=== PATIENT | female | born 1995 ===

== ENCOUNTER 2017-05-07 15:25 | Emergency (ER) | payer BC ==
[2017-05-07 15:55] VITALS: BP 108/69
--- NOTE | 2017-05-07 16:47 | UC ---
UC General HPI - HPI Summary HPI Summary: pt is on day 3 of sudden headache, head congestion, sore throat, cough, f/c and temp of 101. went to [facility], neg strep. told sinus infection but they could not prescribe antibiotics. + body aches. no sob, v/d. - History of Current Complaint Hx Obtained From: Patient Hx Last Menstrual Period: 04/30/17 Onset/Duration: Sudden Onset Timing: Constant Pain Intensity: 7 Associated Signs & Symptoms: Positive: Cough, Fever, Headache. Negative: Diarrhea, Dysuria, Nausea, SOB, Vomiting, Wheezing <Brenna Leslie - Last Filed: 05/07/17 17:17> <Jessica Elizabeth - Last Filed: 05/07/17 17:28> - History of Current Complaint Chief Complaint: UCRespiratory Stated Complaint: SINUS Time Seen by Provider: 05/07/17 16:33 - Allergy/Home Medications Allergies/Adverse Reactions: Allergies Allergy/AdvReac Type Severity Reaction Status Date / Time seasonal Allergy Unknown congestion, Uncoded 05/07/17 15:45 sneezing Home Medications: Home Medications Oral Contraceptive 1 tab PO DAILY 05/07/17 [History] PMH/Surg Hx/FS Hx/Imm Hx Previously Healthy: Yes - Surgical History Surgical History: Yes Surgery Procedure, Year, and Place: COLONOSCOPY. T&A - Social History Occupation: Student Lives: Dormitory/Roommates Alcohol Use: Occasionally Substance Use Type: None Smoking Status (MU): Never Smoked Tobacco - Immunization History Vaccination Up to Date: Yes <Brenna Leslie - Last Filed: 05/07/17 17:17> Review of Systems Constitutional: Fever, Chills ENT: Sore Throat, Nasal Discharge, Sinus Congestion Respiratory: Cough Musculoskeletal: Myalgia Neurological: Headache Is Patient Immunocompromised?: No All Other Systems Reviewed And Are Negative: Yes <Brenna Leslie - Last Filed: 05/07/17 17:17> Physical Exam Triage Information Reviewed: Yes Appearance: Well-Appearing Vital Signs: Initial Vital Signs Temp 98.9 F 05/07/17 15:46 Pulse 86 05/07/17 15:46 Resp 18 05/07/17 15:46 BP 108/69 05/07/17 15:46 Pulse Ox 99 05/07/17 15:46 Vital Signs Reviewed: Yes Eyes: Positive: Conjunctiva Clear ENT: Positive: Pharynx normal, Nasal congestion, Nasal drainage - clear, TMs normal, Uvula midline. Negative: Tonsillar swelling, Tonsillar exudate, Trismus , Muffled voice, Sinus tenderness Neck: Positive: Supple, Nontender, No Lymphadenopathy Respiratory: Positive: Lungs clear, Normal breath sounds, No respiratory distress Cardiovascular: Positive: RRR, No Murmur Abdomen Description: Positive: Nontender, No Organomegaly, Soft Bowel Sounds: Positive: Present Musculoskeletal: Positive: ROM Intact Neurological: Positive: Alert Psychological: Positive: Age Appropriate Behavior Skin Exam: Normal <Brenna Leslie - Last Filed: 05/07/17 17:17> Vital Signs: Initial Vital Signs Temp 98.9 F 05/07/17 15:46 Pulse 86 05/07/17 15:46 Resp 18 05/07/17 15:46 BP 108/69 05/07/17 15:46 Pulse Ox 99 05/07/17 15:46 <Jessica Elizabeth - Last Filed: 05/07/17 17:28> Diagnostics - Laboratory Diagnostic Studies Completed/Ordered: rapid flu=neg. strep by wilmar mckeon was negative [employer]rim[employer] boat [employer] <Brenna Leslie - Last Filed: 05/07/17 17:17> Course/Dx - Course Course Of Treatment: non toxic, abrupt in onset. nothing to suggest bacterial infection. c/w STONEY. day 3 of s/s's. tx supportive - Differential Dx - Multi-Symptom Provider Diagnoses: influenza like illness. <Brenna Leslie - Last Filed: 05/07/17 17:17> Discharge - Sign-Out/Discharge Documenting (check all that apply): Discharge - Billing Disposition and Condition Condition: STABLE Disposition: HOME <Brenna Leslie - Last Filed: 05/07/17 17:17> - Billing Disposition and Condition Condition: STABLE Disposition: HOME <Jessica lEizabeth - Last Filed: 05/07/17 17:28> - Discharge Plan Condition: Stable Disposition: HOME Patient Education Materials: Influenza (ED) Forms: *School Release Referrals: Non Staff,Doctor [Primary Care Provider] - Additional Instructions: FOLLOW UP [facility] IN 5 DAYS FOR A RECHECK OR SOONER IF WORSE. Attestation Statement User Type: Provider - I was available for consult. This patient was seen by the advanced practice provider. The patient was not presented to, seen by, or examined by me.-Mireya <Jessica Elizabeth - Last Filed: 05/07/17 17:28>
== END 2017-05-07 17:21 | disposition home or self-care (01) ==
LOC: UCCORT 15:25
DX: J11.1 Influenza due to unidentified influenza virus with other respiratory manifestations (principal)
CPT/HCPCS: 87502; 99201; G0463

== ENCOUNTER 2018-10-21 14:36 | Emergency (ER) | payer BC, OTHER ==
[2018-10-21 15:01] VITALS: BP 113/65
--- NOTE | 2018-10-21 15:08 | UC ---
General HPI - HPI Summary HPI Summary: pt was accidentally hit in the bridge of her nose by an elbow last pm. she is c/o pain, sinus pain and nose being curved. she did hear it crack. no bloody nose, blurry/double vision or malocclusion. - History of Current Complaint Chief Complaint: UCTrauma Stated Complaint: NOSE INJURY(ELBOWED) Time Seen by Provider: 10/21/18 14:59 Hx Obtained From: Patient Hx Last Menstrual Period: week ago Onset/Duration: Sudden Onset Timing: Constant Pain Intensity: 6 Associated Signs & Symptoms: Negative: Headache - Allergy/Home Medications Allergies/Adverse Reactions: Allergies Allergy/AdvReac Type Severity Reaction Status Date / Time seasonal Allergy Unknown congestion, Uncoded 10/21/18 15:01 sneezing PMH/Surg Hx/FS Hx/Imm Hx Previously Healthy: Yes - Surgical History Surgical History: Yes Surgery Procedure, Year, and Place: COLONOSCOPY. T&A - Family History Known Family History: Positive: Non-Contributory - Social History Occupation: Student Alcohol Use: Occasionally Substance Use Type: None Smoking Status (MU): Never Smoked Tobacco - Immunization History Vaccination Up to Date: Yes Review of Systems All Other Systems Reviewed And Are Negative: No Constitutional: Negative: Fever Eyes: Negative: Blurred Vision, Diplopia ENT: Positive: Sinus Pain/Tenderness. Negative: Nasal Discharge Neurological: Negative: Headache Physical Exam Triage Information Reviewed: Yes Appearance: Well-Appearing Vital Signs: Initial Vital Signs Temp 98.8 F 10/21/18 14:56 Pulse 58 10/21/18 14:56 Resp 16 10/21/18 14:56 BP 113/65 10/21/18 14:56 Pulse Ox 100 10/21/18 14:56 Vital Signs Reviewed: Yes Eyes: Positive: Conjunctiva Clear, Other: - PERRL. EOMI. No double or blurry vision. ENT: Positive: Pharynx normal, TMs normal, Other - Nose: bridge is slightly crooked and tender. no epistaxis or septal hematoma. ? mild septal deviation. Dental: Positive: Other: - No malocclusion. Negative: Dental Fracture @ Neck: Positive: Supple Musculoskeletal: Positive: Other: - Aside from nose. No cranial or facial bone instability or tenderness. Neurological: Positive: Alert Psychological: Positive: Age Appropriate Behavior Skin Exam: Normal Diagnostics - Radiology No standard instances Radiology Interpretation Completed By: Radiologist - IMPRESSION: NO ACUTE OSSEOUS INJURY. IF SYMPTOMS PERSIST, RECOMMEND REPEAT IMAGING. Course/Dx - Differential Dx - Multi-Symptom Differential Diagnoses: Other - no fx seen on xray; however, bridge of nose and septum ? slightly curved on exam. will refer to ent. - Diagnoses Provider Diagnosis: Nasal injury Discharge ED - Sign-Out/Discharge Documenting (check all that apply): Patient Departure All imaging exams completed and their final reports reviewed: Yes - Discharge Plan Condition: Stable Disposition: HOME Patient Education Materials: Nasal Contusion (ED) Referrals: Demarco Cullen MD [Medical Doctor] - Additional Instructions: CALL ENT AND MAKE AN APPOINTMENT FOR THE [place] OFFICE FOR A RECHECK ON . CALL IN AM TO SCHEDULE THE FOLLOW UP. - Billing Disposition and Condition Condition: STABLE Disposition: Home
== END 2018-10-21 15:39 | disposition home or self-care (01) ==
LOC: UCCORT 14:36
DX: S09.92XA Unspecified injury of nose, initial encounter (principal); W50.0XXA Accidental hit or strike by another person, initial encounter; Y92.9 Unspecified place or not applicable
CPT/HCPCS: 70160; 99211; G0463